=== PATIENT | male | born 1955 | race Caucasian/White ===

== ENCOUNTER 2017-05-01 10:14 | Observation (INO) | payer BC ==
[2017-05-01] MEDS ORDERED: Orphenadrine Citrate IV* 30 MG/ML 2 ML VIAL IV ONE (10:24)
[2017-05-01 10:54] LABS: Hematocrit 39 % (42-52); Hemoglobin 13.5 g/dl (14.0-18.0); Mean Corpuscular HGB Conc 35 g/dl (31-36); Mean Corpuscular Hemoglobin 31 pg (27-31); Mean Corpuscular Volume 90 fL (80-94); Mean Platelet Volume 7 um3 (7.4-10.4); Red Cell Distribution Width 13 % (10.5-15); White Blood Count 4.3 10^3/ul (3.5-10.8)
--- NOTE | 2017-05-01 10:57 | RAD ---
INDICATION: Head injury. COMPARISON: There are no prior studies available for comparison. TECHNIQUE: Contiguous axial sections of the brain were obtained from the skull base to the vertex without contrast. FINDINGS: The ventricles, cisterns and sulci are within normal limits. No significant focal abnormality or mass effect is seen. There is no evidence for hemorrhage. There is calcification within the basal ganglia most prominent within the right caudate nucleus head. There is soft tissue swelling and a soft tissue defect anterior to the frontal bones. No fracture is seen. There is a round 2.0 cm nodule present within the right maxillary sinus most consistent with a mucous retention cyst or polyp which is unchanged from a prior CT angiogram of the neck from June 11, 2014. The visualized portion of the paranasal sinuses and mastoid air cells otherwise appear clear. IMPRESSION: 1. NO EVIDENCE FOR ACUTE INTRACRANIAL ABNORMALITY. 2. SOFT TISSUE INJURY TO THE SCALP ANTERIOR TO THE FRONTAL BONES.
[2017-05-01 11:16] LABS: Albumin 4.4 g/dL (3.2-5.2); BUN/Creatinine Ratio 15.8 (8-20); Calcium 9.4 mg/dL (8.6-10.3); EGFR African American 84.3 (>60); EGFR Non-African American 65.5 (>60); Globulin 2.6 g/dL (2-4); Potassium 3.8 mmol/L (3.5-5.0); Total Bilirubin 0.7 mg/dL (0.2-1.0)
--- NOTE | 2017-05-01 11:24 | RAD ---
INDICATION: Trauma. COMPARISON: Comparison is made with a prior CT angiogram of the neck from June 11, 2014. TECHNIQUE: Contiguous axial sections were obtained beginning above the C7 vertebra and scanning through the L1 vertebra. Images were reconstructed in the sagittal and coronal planes. FINDINGS: The vertebra are in normal alignment. There are mild compression fractures involving the superior endplates of the T4, T5 and T6 vertebral bodies. There is loss of height at the T4 and T6 levels of approximately 15-20% without significant loss of height at the T5 level. The posterior elements appear intact. In addition there is a paravertebral soft tissue swelling and hematoma at those levels adjacent to the vertebral bodies. There also appears to be extension into the spinal canal anterolaterally on the right side at those levels most prominent at the T5-T6 level with suggestion of spinal cord compression although the spinal cord is not well visualized on the this study. There is no evidence for significant disc bulge or herniation. No significant spinal canal narrowing is seen. The results of this exam were called to referring clinician. IMPRESSION: 1. MILD COMPRESSION FRACTURES OF THE T4, T5 AND T6 VERTEBRAL BODIES. 2. PARASPINAL HEMATOMA WITH EPIDURAL EXTENSION AND POSSIBLE SPINAL CORD COMPRESSION. RECOMMEND AN MRI OF THE DORSAL SPINE WITHOUT CONTRAST FOR FURTHER EVALUATION.
[2017-05-01] MEDS ORDERED: Morphine INJ* 4 MG/ML 1 ML CARPUJECT IV ONE (11:26)
[2017-05-01] MEDS ORDERED: Ondansetron INJ* 2 MG/ML VIAL IV ONE (11:26)
[2017-05-01] MEDS ORDERED: Lidocaine 2% EPI 1:200000 MPF* 20 ML VIAL ONE (11:40)
--- NOTE | 2017-05-01 11:52 | RAD ---
INDICATION: Trauma. COMPARISON: Comparison is made with a prior CT angiogram of the neck from June 11, 2014. TECHNIQUE: Contiguous axial sections were obtained from the skull base through the T4 vertebra. Images were reconstructed in the sagittal and coronal planes. FINDINGS: The vertebra are in normal alignment. There are transverse fractures roughly in the coronal plane extending through the posterior aspect of the articular masses of the C1 vertebra extending to the articulations with the occipital condyles. The fractures also extend adjacent to the transverse foramen. The fracture fragments are nondisplaced. No additional cervical spine spine fractures are seen. Again note is made of a compression fracture of the T4 vertebral body. At the C3-C4 level there is mild posterior uncinate process spurring and facet osteoarthritis. No spinal canal narrowing is present. There is mild neural foraminal narrowing on the left side. At the C4-C5 level there is a minimal central disc protrusion. No significant spinal canal or neural foraminal narrowing is seen. At the C5-C6 level no spinal canal or neural foraminal narrowing is seen. At the C6-C7 level there is minimal posterior uncinate process spurring. No spinal canal or neural foraminal narrowing is seen. The results of this exam were discussed with the referring clinician. IMPRESSION: THERE ARE NONDISPLACED FRACTURES OF THE POSTERIOR ASPECTS OF THE ARTICULAR MASSES OF THE C1 VERTEBRA ON BOTH SIDES EXTENDING TO THE ARTICULATIONS WITH THE OCCIPITAL CONDYLES AND ALSO EXTENDING TO THE TRANSVERSE FORAMEN. RECOMMEND A CT ANGIOGRAM OF THE HEAD AND NECK TO EXCLUDE VERTEBRAL ARTERY DISSECTION.
[2017-05-01] MEDS ORDERED: Iohexol 350* (CONTRAST) 500 ML MDV IV ONE (11:56)
[2017-05-01] MEDS ORDERED: Bacitracin OINTMENT* 1 TUBE ONE (12:19)
[2017-05-01] MEDS ORDERED: Acetaminophen TAB* 325 MG PO PRN (13:24)
[2017-05-01] MEDS ORDERED: Ondansetron INJ* 2 MG/ML VIAL IV PRN (13:24)
[2017-05-01] MEDS ORDERED: Docusate CAP* 100 MG PO PRN (13:24)
[2017-05-01] MEDS ORDERED: Morphine INJ* 4 MG/ML 1 ML CARPUJECT IV PRN (13:30)
--- NOTE | 2017-05-01 14:00 | RAD ---
INDICATION: Compression fractures of the T4 T5 T6 vertebral bodies evaluate for epidural hematoma. COMPARISON: Correlation is made with a prior CT of the dorsal spine from May 01, 2017. TECHNIQUE: Axial and sagittal T1 and T2-weighted images of the dorsal spine were obtained. FINDINGS: There are mild compression fractures of the T4, T5 and T6 vertebral bodies as previous seen noted. No other significant focal osseous normality is seen. There is soft tissue swelling and a hematoma adjacent to the vertebral bodies at the level of the fracture. There is no evidence for epidural extension. The spinal cord is normal in shape and signal intensity. There is no evidence for spinal canal narrowing. There is a round T1 and T2 hyperintense 1 cm lesion within the L1 vertebral body which suppresses on inversion recovery images consistent with a benign hemangioma. There is a small right posterior lateral disc protrusion at the T8-T9 level. No significant disc bulge or herniation is seen. The spinal canal appears patent and neural foramen appear patent bilaterally at all levels. IMPRESSION: THERE ARE MILD COMPRESSION FRACTURES OF THE T4, T5 AND T6 VERTEBRAL BODIES PREVIOUSLY DESCRIBED. THERE IS A PARAVERTEBRAL HEMATOMA AT THOSE LEVELS. THERE IS NO EVIDENCE FOR AN EPIDURAL HEMATOMA AND NO SIGNIFICANT SPINAL CANAL NARROWING IS SEEN.
--- NOTE | 2017-05-01 14:29 | RAD ---
INDICATION: Cervical fracture extending to the transverse foramen of C1 evaluate for vertebral artery dissection. COMPARISON: Comparison is made with a prior CT of the cervical spine of the same date and a prior CT angiogram of the neck from June 11, 2014. TECHNIQUE: A CT angiogram of the head and neck was performed following intravenous injection of 80 ml of Omnipaque 350 nonionic contrast. Contiguous axial sections were obtained from the thoracic inlet through the skull vertex. Images were reconstructed in the coronal and sagittal planes and in a 3-D volume rendered format. The distal cervical internal carotid artery diameter is used as the denominator for stenosis measurement. FINDINGS: RIGHT CAROTID: The common and internal carotid arteries appear widely patent without evidence for hemodynamically significant stenosis. There is very mild calcific plaque present within the carotid bulb. LEFT CAROTID: The common and internal carotid arteries appear widely patent without evidence for hemodynamically significant stenosis. VERTEBRALS: The vertebral arteries appear symmetric with homogeneous contrast opacification. There is no evidence for dissection. CTA BRAIN: The internal carotid, anterior and middle cerebral arteries appear patent without evidence for high-grade stenosis or occlusion. The A1 segment of the right anterior cerebral artery appears small in caliber. There is bilateral calcification within the cavernous portion of the internal carotid arteries. The vertebral, basilar and posterior cerebral arteries appear patent without evidence for high-grade stenosis or occlusion. The right posterior cerebral artery arises from the posterior communicating artery consistent with normal variation. There is focal soft tissue swelling and air within the scalp anterior to the frontal bones consistent with the patient's known laceration injury. No gross perfusion abnormalities are seen. No aneurysm or vascular malformation is seen. NECK: No significant enlarged lymph nodes are seen within the neck. The thyroid, parotid and submandibular glands appear to be within normal limits. The lung apices appear clear. There is a 2 cm nodular density in the inferior posterior aspect of the right maxillary sinus unchanged from the prior CT angiogram of the neck from 2013 most consistent with a mucous retention cyst or polyp. The paranasal sinuses and mastoid air cells otherwise appear clear. IMPRESSION: 1. NO EVIDENCE FOR VERTEBRAL ARTERY DISSECTION. 2. MILD ATHEROSCLEROTIC CHANGE. 3. SMALL CALIBER A1 SEGMENT OF THE RIGHT ANTERIOR CEREBRAL ARTERY LIKELY REPRESENTING NORMAL VARIATION LESS LIKELY ATHEROSCLEROTIC CHANGE. CPT II Codes: 3100F
[2017-05-01] MEDS ORDERED: Tetan/Diph/Pertus SYR(Tdap)* 0.5 ML SYR(BOOSTRIX) use SYR IM ONE (16:00)
--- NOTE | 2017-05-01 16:03 | CONS ---
PLASTIC SURGERY CONSULTATION AND PROCEDURE NOTE: DATE OF CONSULT: 05/01/17 REASON FOR CONSULT: Repair of forehead laceration. HISTORY OF PRESENT ILLNESS: The patient is a 61-year-old male who was playing racqueUnityware this morning and ran into a wall sustaining multiple injuries. I was consulted for surgical repair of a jagged central forehead laceration flap injury. PHYSICAL EXAM: On examination, patient was noted to be alert and oriented, lying on the emergency room stretcher in a cervical collar. Examination of the forehead area demonstrated an inverted "Y" shaped jagged laceration flap injury involving the central forehead extending up slightly into the frontal scalp area. Laceration extended deeply full thickness through the galea frontalis layer down to periosteum. There was no bony deformity visible or palpable. Total length of the laceration flap injury was approximately 8 cm. I discussed the treatment alternatives, possible benefits and material risks with the patient and his . They elected to proceed with washout and suture repair of the laceration under local anesthesia in the emergency room. PROCEDURE: The patient was left in the supine position on the emergency room stretcher. The area was prepped with Betadine solution, draped sterilely and infiltrated with approximately 15 cc of 2% lidocaine with epinephrine. The wound was then irrigated with copious 5% Betadine and saline solution and rinsed with clear saline. Multiple layered repair of the complex jagged laceration flap injury was performed after conservative debridement of devitalized tissue. The galea frontalis layer was repaired with interrupted sutures of 4-0 Vicryl. Deep dermis was approximated with several deep dermal inverted sutures of 4-0 Vicryl to take tension off the skin repair. The skin was then repaired with multiple fine meticulous interrupted and running sutures of 6-0 nylon. Complete wound closure was achieved without tension. The area was dressed with bacitracin ointment, Xeroform gauze, sterile gauze and tape. The patient tolerated the procedure well. The patient and his were given instructions including activity level, wound care, medication and followup. I recommended that I see him as an outpatient within 5 to 6 days in my office for suture removal. If he is admitted for that length of time, I will see him in the hospital. [id number]/[facility] #: [id number] [facility]ITAL[facility]andana
[2017-05-01] MEDS: oxyCODONE/Acetamin 5/325 MG* TAB PO PRN ×2 (19:30→23:37)
[2017-05-02 00:42] LABS: Urine Bacteria Absent (Absent); Urine Bilirubin Negative (Negative); Urine Glucose Negative (Negative); Urine Nitrite Negative (Negative)
[2017-05-02] MEDS: oxyCODONE/Acetamin 5/325 MG* TAB PO PRN (05:55)
[2017-05-02 07:21] LABS: Hematocrit 37 % (42-52); Hemoglobin 12.9 g/dl (14.0-18.0); Mean Corpuscular HGB Conc 35 g/dl (31-36); Mean Corpuscular Hemoglobin 32 pg (27-31); Mean Corpuscular Volume 90 fL (80-94); Mean Platelet Volume 7 um3 (7.4-10.4); Red Cell Distribution Width 14 % (10.5-15); White Blood Count 6.1 10^3/ul (3.5-10.8)
[2017-05-02 07:57] VITALS: BP 126/79
--- NOTE | 2017-05-02 08:37 | PN ---
Progress Note - Progress Note Date of Service: 05/02/17 SOAP: Subjective: []Complains of pain at base of skull CTA neg Ambulated with me in [place] brace Objective: []Neuro intact Assessment: []Stable in brace and collar Plan: []D/C today D/C instructions given
[2017-05-02] MEDS ORDERED: Valsartan TAB* 160 MG PO SCH (09:00)
[2017-05-02] MEDS ORDERED: Sertraline* 50 MG TAB PO SCH (09:00)
[2017-05-02] MEDS ORDERED: Hydrochlorothiazide TAB* 25 MG PO SCH (09:00)
--- NOTE | 2017-05-03 08:40 | HP ---
ADMISSION HISTORY AND PHYSICAL: DATE OF ADMISSION: 05/01/17 CHIEF COMPLAINT: Back pain. 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 He struck the wall head first and immediately had the onset of bleeding from a scalp ulceration, as well as significant back discomfort. He did not lose consciousness. He was taken to the emergency room at the [facility], where he was noted to be neurologically intact. As part of his evaluation CT scans were performed of his head, cervical spine, and thoracic spine with findings being of a bilateral ring fracture of C1, as well as compression fractures of T4, T5, and T6. He was seen in the emergency room, where he complained primarily of back discomfort. Dr. Salazar saw him in the emergency room and performed primary closure of his scalp ulceration. He has no previous history of back or neurological injury. He had been admitted at this time for further evaluation. PAST MEDICAL HISTORY: Significant for a previous diagnosis of hypertension. PAST SURGICAL HISTORY: Previous surgeries include previous knee arthroscopy and a vasectomy. CURRENT MEDICATIONS: Include: 1. Diovan. 2. Sertraline. ALLERGIES: He has no known medicine allergies. FAMILY HISTORY: A family history was taken and did not contribute to this illness. SOCIAL HISTORY: Reveals the patient has an occasional glass of wine and does not smoke or use illicit drugs. He has a supportive . REVIEW OF SYSTEMS: A system review was taken, it did not contribute to this illness. PHYSICAL EXAMINATION VITAL SIGNS: His blood pressure was 140/80 with a pulse of 72 and respirations of 16. HEENT: Head revealed a 5 cm laceration in the mid frontal region of his forehead, which had been primarily sutured. Eyes reveal a full range of extraocular movements with pupils that are equal and reactive to light. NECK: Immobilized in a [place] collar. LUNGS: Clear to auscultation. CARDIOVASCULAR: Exam revealed a regular rate and rhythm. ABDOMEN: Soft with normal bowel sounds. No tenderness. EXTREMITIES: Revealed a full range of active motion. NEUROLOGIC: Motor examination revealed 5/5 strength in all extremities. Sensory exam is intact to pinprick and light touch. Reflexes were 2+ throughout with downgoing toes and no clonus. DIAGNOSTIC STUDIES: A CT scan of his brain was reviewed and was normal. A CT scan of his cervical spine showed fractures of the arch of C1 bilaterally with no displacement. CT of the thoracic spine showed compression fractures of T4, T5 and T6 with a suggestion of an anterior paraspinal hematoma extending along the entire fractured segments. IMPRESSION: 1. Scalp laceration. 2. Cervical spine fracture. 3. Multiple thoracic spine fractures. PLAN: He is being admitted for further evaluation to include MRI scanning of his thoracic spine. [id number]/[facility] #: [id number] MTDVandana
--- NOTE | 2017-05-03 10:35 | DS ---
DISCHARGE SUMMARY: DATE OF ADMISSION: 05/01/17 DATE OF DISCHARGE: 05/02/17 DISCHARGE DIAGNOSES: 1. Scalp laceration. 2. C1 fracture. 3. Thoracic compression fractures T4, T5, and T6. SPECIAL PROCEDURES: None. HOSPITAL COURSE: This 61-year-old gentleman was admitted after suffering injuries during a squash contest. He had a scalp laceration repaired by Dr. Salazar in the emergency room and was found on testing to have multiple spine fractures that include a C1 fracture as well as multiple compression fractures of the upper thoracic spine at T4, T5 and T6. He was admitted for observation and was fitted with a [place] collar for a cervical fracture and a [place] brace for his thoracic fracture. He remained neurologically intact and at the time of discharge was able to ambulate with his braces. He received discharge instructions regarding activity level and the use of his braces as well as wound care for his scalp laceration. He was scheduled to return to the office on 05/05/17 for followup. DISCHARGE MEDICATIONS: Included Percocet 5/325 one p.o. q.4 hours as needed for discomfort. [id number]/[facility] #: [id number] ERIS
--- NOTE | 2017-05-04 13:26 | ED ---
Cindy Pacheco Edward, scribed for Rocky Aponte MD on 05/01/17 at 1023 . Head Injury - HPI Summary HPI Summary: 61 y/o male GALO c/o head laceration s/p head injury while playing squash this morning. Pt ran head-first into a wall. No LOC. Pt c/o back pain in between his shoulder blades in his thoracic spine area. Denies weakness in extremities and blurred vision. Pt also developed tilt vertigo briefly in the EMS. Associated sx : neck stiffness. - History Of Current Complaint Stated Complaint: HEAD LAC Hx Obtained From: Patient Mechanism Of Injury: Blunt Trauma - Head first into a wall Onset/Duration: Started Minutes Ago, Still Present Location of Head Injury: Frontal Associated Signs And Symptoms: Neck Pain, Other: - back pain, vertigo dizziness (brief episode that resolved). No LOC, no blurred vision - Allergies/Home Medications Allergies/Adverse Reactions: Allergies Allergy/AdvReac Type Severity Reaction Status Date / Time Bee Venom Allergy Hives Verified 05/01/17 13:49 Home Medications: Home Medications Zoloft* 50 mg PO DAILY 05/01/17 [History Confirmed 05/01/17] PMH/Surg Hx/FS Hx/Imm Hx Previously Healthy: No Endocrine/Hematology History: Denies: Hx Diabetes, Hx Systemic Lupus Erythematosus Cardiovascular History: Reports: Hx Hypertension Denies: Hx Congestive Heart Failure History: Denies: Hx Dialysis, Hx Renal Disease Musculoskeletal History: Denies: Hx Rheumatoid Arthritis, Hx Osteoporosis - Cancer History Hx Chemotherapy: No - Surgical History Surgery Procedure, Year, and Place: vasectomy - Family History Known Family History: Positive: Other - Unremarkable Review of Systems Constitutional: Negative Eyes: Negative Negative: Blurred Vision ENT: Negative Cardiovascular: Negative Respiratory: Negative Gastrointestinal: Negative Genitourinary: Negative Positive: Arthralgia - Pain in between shoulder blades, neck stiffness Skin: Other - Head laceration Neurological: Other - Brief episode of vertigo. No LOC, no blurred vision Positive: Headache Psychological: Normal All Other Systems Reviewed And Are Negative: Yes Physical Exam - Summary Physical Exam Summary: VITAL SIGNS: Reviewed. GENERAL: Patient is a well-developed and nourished male who is lying comfortable in the stretcher. Patient is not in any acute respiratory distress. HEAD AND FACE: Laceration at the top of his forehead in a Y shape. MUSCULOSKELETAL: Tenderness @ the C spine and the T spine. EYES: PERRLA, EOMI x 2, No injected conjunctiva, no nystagmus. EARS: Hearing grossly intact. Ear canals and tympanic membranes are within normal limits. MOUTH: Oropharynx within normal limits. NECK: Supple, trachea is midline, no adenopathy, no JVD, no carotid bruit, no c- spine tenderness, neck with full ROM. CHEST: Symmetric, no tenderness at palpation LUNGS: Clear to auscultation bilaterally. No wheezing or crackles. CVS: Regular rate and rhythm, S1 and S2 present, no murmurs or gallops appreciated. ABDOMEN: Soft, non-tender. No signs of distention. No rebound no guarding, and no masses palpated. Bowel sounds are normal. EXTREMITIES: FROM in all major joints, no edema, no cyanosis or clubbing. NEURO: Alert and oriented x 3. No acute neurological deficits. Speech is normal and follows commands. No LOC. No double vision. SKIN: Dry and warm Triage Information Reviewed: Yes Vital Signs Reviewed: Yes Diagnostics - Laboratory Result Diagrams: 05/01/17 10:35 05/01/17 10:35 Lab Statement: Any lab studies that have been ordered have been reviewed, and results considered in the medical decision making process. - CT BRAIN CT CT Interpretation: Positive (See Comments) - 1. NO EVIDENCE FOR ACUTE INTRACRANIAL ABNORMALITY. 2. SOFT TISSUE INJURY TO THE SCALP ANTERIOR TO THE FRONTAL BONES. CT Interpretation Completed By: Radiologist THORACIC SPINE CT CT Interpretation: Positive (See Comments) - 1. MILD COMPRESSION FRACTURES OF THE T4, T5 AND T6 VERTEBRAL BODIES. 2. PARASPINAL HEMATOMA WITH EPIDURAL EXTENSION AND POSSIBLE SPINAL CORD COMPRESSION. RECOMMEND AN MRI OF THE DORSAL SPINE WITHOUT CONTRAST FOR FURTHER EVALUATION. CT Interpretation Completed By: Radiologist CERVICAL SPINE CT CT Interpretation: Positive (See Comments) - THERE ARE NONDISPLACED FRACTURES OF THE POSTERIOR ASPECTS OF THE ARTICULAR MASSES OF THE C1 VERTEBRA ON BOTH SIDES EXTENDING TO THE ARTICULATIONS WITH THE OCCIPITAL CONDYLES AND ALSO EXTENDING TO THE TRANSVERSE FORAMEN. RECOMMEND A CT ANGIOGRAM OF THE HEAD AND NECK TO EXCLUDE VERTEBRAL ARTERY DISSECTION. CT Interpretation Completed By: Radiologist HEAD CTA CT Interpretation: No Acute Changes - 1. NO EVIDENCE FOR VERTEBRAL ARTERY DISSECTION. 2. MILD ATHEROSCLEROTIC CHANGE. CT Interpretation Completed By: Radiologist - Additional Comments Diagnostic Additional Comments: THORACIC SPINE MRI - THERE ARE MILD COMPRESSION FRACTURES OF THE T4, T5 AND T6 VERTEBRAL BODIES PREVIOUSLY DESCRIBED. THERE IS A PARAVERTEBRAL HEMATOMA AT THOSE LEVELS. THERE IS NO EVIDENCE FOR AN EPIDURAL HEMATOMA AND NO SIGNIFICANT SPINAL CANAL NARROWING IS SEEN. Re-Evaluation - Re-Evaluation 1 Re-Evaluation Time: 11:20 Comment: Discuss CT results Head Injury Course/Dx Assessment/Plan: 61 y/o male BIBA c/o head laceration s/p head injury while playing squash this morning. Pt ran head-first into a wall. No LOC. Pt c/o back pain in between his shoulder blades in his thoracic spine area. Denies weakness in extremities and blurred vision. Pt also developed tilt vertigo briefly in the EMS. Associated sx: neck stiffness. Dr. Salazar will see the pt in the ED. Test results without significant abnormalities except slight normocetic anemia and glucose of 104. BRAIN CT SHOWS 1. NO EVIDENCE FOR ACUTE INTRACRANIAL ABNORMALITY. 2. SOFT TISSUE INJURY TO THE SCALP ANTERIOR TO THE FRONTAL BONES. Dr. Simmons called in CT results at 11:15. THORACIC SPINE CT SHOWS 1. MILD COMPRESSION FRACTURES OF THE T4, T5 AND T6 VERTEBRAL BODIES. 2. PARASPINAL HEMATOMA WITH EPIDURAL EXTENSION AND POSSIBLE SPINAL CORD COMPRESSION. RECOMMEND AN MRI OF THE DORSAL SPINE WITHOUT CONTRAST FOR FURTHER EVALUATION. C- SPINE CT SHOWS THERE ARE NONDISPLACED FRACTURES OF THE POSTERIOR ASPECTS OF THE ARTICULAR MASSES OF THE C1 VERTEBRA ON BOTH SIDES EXTENDING TO THE ARTICULATIONS WITH THE OCCIPITAL CONDYLES AND ALSO EXTENDING TO THE TRANSVERSE FORAMEN. RECOMMEND A CT ANGIOGRAM OF THE HEAD AND NECK TO EXCLUDE VERTEBRAL ARTERY DISSECTION. Since the pt has t4, 5, and [address] Simmons recommends the pt get an MRI for further evaluation of fractures with hematoma to r/o cord compressions. Since pt has c1 fracture the pt was placed in a [place] collar. Dr. Simmons also recommends a CTA Head/Neck. THORACIC SPINE MRI - THERE ARE MILD COMPRESSION FRACTURES OF THE T4, T5 AND T6 VERTEBRAL BODIES PREVIOUSLY DESCRIBED. THERE IS A PARAVERTEBRAL HEMATOMA AT THOSE LEVELS. THERE IS NO EVIDENCE FOR AN EPIDURAL HEMATOMA AND NO SIGNIFICANT SPINAL CANAL NARROWING IS SEEN. HEAD/NECK CTA SHOWS 1. NO EVIDENCE FOR VERTEBRAL ARTERY DISSECTION. 2. MILD ATHEROSCLEROTIC CHANGE. At this point Dr. Fortune was consulted, and the pt was given IV fluids, Norflex, morphine for pain and Zofran for nausea. Dr. Fortune recommended the pt be admitted to his services for further workup and management. Laceration was repaired by Dr. Salazar, and the pt was given a tetanus vaccine. Pt is feeling better, admitted to [place]. - Diagnoses Provider Diagnoses: Trauma, Head contusion, Laceration, T4-T6 fracture, C1 cervical fracture - Physician Notifications Discussed Care Of Patient With: Marty Salazar Time Discussed With Above Provider: 10:40 Instructed by Provider To: MD Will See In ED Discharge - Discharge Plan Condition: Stable Disposition: ADMITTED TO [facility] The documentation as recorded by the Cindy rodgers Edward accurately reflects the service I personally performed and the decisions made by , Rocky Aponte MD.
== END 2017-05-02 11:05 | disposition home or self-care (01) ==
LOC: ED 10:14 → INTOOBSV 13:24 → SSU 13:24
PROVIDERS: ADMIT Neurological Surgery; ATTEND Neurological Surgery
DX: S12.091A Other nondisplaced fracture of first cervical vertebra, initial encounter for closed fracture (principal); S22.048A Other fracture of fourth thoracic vertebra, initial encounter for closed fracture; S22.058A Other fracture of T5-T6 vertebra, initial encounter for closed fracture; W22.01XA Walked into wall, initial encounter; Y93.59 Activity, other involving other sports and athletics played individually; Y92.39 Other specified sports and athletic area as the place of occurrence of the external cause; S01.01XA Laceration without foreign body of scalp, initial encounter; S00.93XA Contusion of unspecified part of head, initial encounter; M54.2 Cervicalgia; M54.6 Pain in thoracic spine; I10 Essential (primary) hypertension
CPT/HCPCS: 36415; 70450; 70496; 70498; 72125; 72128; 72146; 80053; 81003; 81015; 82550; 85025; 90715; 96374; 96375; 99284; A9270-GY; G0378; J2270; J2360; J2405; Q9967

== ENCOUNTER 2019-09-27 10:59 | Emergency (ER) | payer BC ==
[2019-09-27 11:17] VITALS: BP 162/100
[2019-09-27 11:39] LABS: Influenza A Molecular Negative (Negative); Influenza B Molecular Negative (Negative)
--- NOTE | 2019-09-27 11:51 | UC ---
General HPI - HPI Summary HPI Summary: Three days ago started feeling unwell - began fever/chills, Nausea and diarrhea - URI symptoms. Last night had fever/chills -took an aspirin. Decreased PO. Did not take his BP pill because he thought he was dehydrated. Flew back from [facility] 3 weeks ago - History of Current Complaint Chief Complaint: UCRespiratory Stated Complaint: SORE THROAT FEVER CHILLS BODYACHES Time Seen by Provider: 09/27/19 11:13 Pain Intensity: 2 - Allergy/Home Medications Allergies/Adverse Reactions: Allergies Allergy/AdvReac Type Severity Reaction Status Date / Time bee venom protein (honey bee) Allergy Hives Verified 09/27/19 11:18 Home Medications: Home Medications Diovan Hct 160 mg PO DAILY 06/11/14 [History Confirmed 09/27/19] Multivitamin 1 tab PO DAILY 06/11/14 [History Confirmed 09/27/19] Vitamin D 1 tab PO DAILY 06/11/14 [History Confirmed 09/27/19] Aspirin TAB* [Aspirin 325 MG TAB*] PRN 09/27/19 [History] PMH/Surg Hx/FS Hx/Imm Hx Previously Healthy: Yes Cardiovascular History: Hypertension - Surgical History Surgical History: Yes Surgery Procedure, Year, and Place: vasectomy - Family History Known Family History: Positive: Other - Unremarkable - Social History Alcohol Use: Occasionally Substance Use Type: None Smoking Status (MU): Never Smoked Tobacco - Immunization History Most Recent Influenza Vaccination: 2017 Most Recent Pneumonia Vaccination: never Review of Systems All Other Systems Reviewed And Are Negative: Yes Constitutional: Positive: Fever, Chills ENT: Positive: Sore Throat, Nasal Discharge Respiratory: Positive: Cough Physical Exam Triage Information Reviewed: Yes Appearance: Well-Appearing Vital Signs: Initial Vital Signs Temp 98.5 F 09/27/19 11:11 Pulse 78 09/27/19 11:11 Resp 16 09/27/19 11:11 BP 162/100 09/27/19 11:11 Pulse Ox 97 09/27/19 11:11 ENT: Positive: Pharyngeal erythema, Nasal congestion, TMs normal Neck: Positive: Supple, Nontender Respiratory: Positive: Lungs clear, Normal breath sounds Cardiovascular: Positive: RRR, No Murmur Course/Dx - Course Course Of Treatment: This is a 63 yr old with flu like s/s Flu: negative CLinically improving Plan You can return to work when you are fever free for 24 hours - not on any antipyretics Continue rest, fluids and tylenol as needed for pain/fever Recommend recheck of your blood pressure if still elevated follow up with PCP If symptoms persist or worsen, recommend follow up with PCP or return to urgent care - Diagnoses Provider Diagnosis: Viral syndrome Discharge ED - Sign-Out/Discharge Documenting (check all that apply): Patient Departure All imaging exams completed and their final reports reviewed: No Studies - Discharge Plan Condition: Good Disposition: HOME Patient Education Materials: Viral Syndrome (ED) Referrals: Fito Bernabe MD [Primary Care Provider] - Additional Instructions: You can return to work when you are fever free for 24 hours - not on any antipyretics Continue rest, fluids and tylenol as needed for pain/fever Recommend recheck of your blood pressure if still elevated follow up with PCP If symptoms persist or worsen, recommend follow up with PCP or return to urgent care - Billing Disposition and Condition Condition: GOOD Disposition: Home
== END 2019-09-27 12:00 | disposition home or self-care (01) ==
LOC: UCEAST 10:59
DX: B34.9 Viral infection, unspecified (principal); R11.0 Nausea; R19.7 Diarrhea, unspecified; E86.0 Dehydration; I10 Essential (primary) hypertension; R09.81 Nasal congestion; R09.89 Other specified symptoms and signs involving the circulatory and respiratory systems; R05 Cough; Z91.030 Bee allergy status
CPT/HCPCS: 99211; G0463